=== PATIENT | female | born 1985 | race Caucasian/White ===

== ENCOUNTER 2016-10-29 03:00 | Inpatient (IN) | payer OTHER ==
[~2016-10-29] VITALS: Ht 172.7 cm; Wt 106.6 kg
[2016-10-29] VITALS (10 sets, daily range): BP systolic 104–118; BP diastolic 64–74
[~2016-10-29 03:00] MED LIST: SEASONIQUE 0.11 EACH PO; VITAMIN B COMP1 EACH PO
--- NOTE | 2016-10-29 10:54 | Operative Report ---
Operative/Inv Procedure Report Surgery Date: 10/29/16 Name of Procedure: Exploratory laparotomy myomectomy Pre-Operative Diagnosis: fiboid pain Post-Operative Diagnosis: same Estimated Blood Loss: 50ml to 100ml Surgeon/Security Incident Response Specialist: JULIANNE HOGAN,JAIDEN Villaseñor Anesthesia: general endotracheal tube, block Operative/Procedure Note Note: Patient was taken the operating room placed supine position after adequate anesthesia patient placed in dorsolithotomy position the vagina prepped draped fashion and cystoscopy was performed stents were placed by Dr. Madeline Wright will dictate the part of the case at this point the patient was returned spine position the abdomen was prepped and draped so fashion through Pfannenstiel skin incision 2 fingerbreadths of symptoms pubis in midline Skin was cut was carried down to rectus fascia which was cut in curvilinear fashion I direction peritoneal cavity was entered high into the abdomen Valles [place] Claude was placed in usual fashion lap pads were placed into the abdomen at this point the patient tolerated this well on the fibroid was injected with Pitressin I hemostasis was apparent the shows a fibroid was opened onto revealed that the fibroid was on extra removal of the fibroid was removed with a Bovie on the remaining stump was oversewn using 0 I coagulated with the Bovie on hemostasis was apparent on there was a small 1 cm on fibroid that was Bovie coagulated on the posterior wall of the fundus hemostasis was apparent 9 amount of fluid was removed from the abdomen Seprafilm was placed on both incisions to avoid adhesions in the future the lap pads were removed retractor was removed peritoneum was reapproximated 0 fascia was reapproximated approximated with 2 separate sutures of #1 running lock. Skin was reapproximated bassem after Bovie coagulation subcutaneous tissue. Sterile dressing was applied. The counts were correct the patient was awakened from anesthesia extubated and transferred recovery room awake alert
--- NOTE | 2016-10-29 12:06 | Operative Report ---
Operative/Inv Procedure Report Surgery Date: 10/29/16 Name of Procedure: cystoscopy: bilateral stent insertion Pre-Operative Diagnosis: fibroids Post-Operative Diagnosis: same Estimated Blood Loss: scant Surgeon/Boat Assembler: MD GLORIA ARNOLD-UROLOGY Anesthesia: general endotracheal tube Drains: 18 FR SHUKLA: BILAT. STENTS Specimens: UCX Complications: NONE Operative/Procedure Note Note: The patient was taken to the operating room and placed on the OR table in supine position. Timeout was performed, with the patient awake, to confirm identify, planned procedures, anesthesia, antibiotics and other pertinent kvng-operative information. After adequate anesthesia, and IV antibiotics, the patient was placed in lithotomy Yellow-fin stirrups. She was then draped and prepped in the usual surgical fashion, including a vaginal prep. A 22 Romanian cystoscope sheath with a 30 angle lens was inserted into the bladder without significant difficulty. The bladder was thoroughly and systematically examined, and was noted to be free of tumor, free of stone, free of endometriosis. Both ureteral orifices were in their orthotopic positions with clear reflux bilaterally. Under direct visualization the left orifice was intubated with a 5 Romanian whistle-tip catheter, which was advanced easily into the left kidney pelvis. The right ureteral orifice was intubated with a second 5 Romanian ureteral whistle tip catheter, and advanced into the right renal pelvis without difficulty. For identification purposes the blue marked stent went into the left kidney and the right ureteral stent was marked red. Urine culture was obtained and sent to pathology. The cystoscope was then removed leaving both stents in proper place. An 18 Romanian Shukla catheter was inserted draining clear fluid and 10 mL of sterile water was then placed in the balloon. The ends ureteral stents, which protruded externally, were taped to the Shukla catheter in order to secure their position. The individual ureteral stents were then connected to their individual drainage devices. The patient tolerated the procedure well. All sponge needle and instrument count were correct at the end of this procedure. At this point, Dr. Link was able to proceed with her patient's planned surgery. Findings: NORMAL BLADDER Discharge Disposition: PROCEED WITH DR. LINK CC: DEANA GLORIA MD
--- NOTE | 2016-10-29 13:20 | NUR ---
ARRIVED TO FLOOR FROM PACU. A & O X 3. ON RA. VSS. C/O MILD ABD PAIN. DILAUDID SENIOR SUPPORT ANALYST INFUSING. NO URINE NOTED IN SHUKLA. CATHETER CHECKED. SLIT IN SHUKLA CATHETER AND URINE DRAINING ON BED SHEETS. LARGE WET STAIN TO BED. ATTEMPTED TO TAPE AROUND LEAKING PART OF CATHETER UNSUCCESSFULLY. RE-TAPED WITH TEGADERM TO TRY AND PREVENT LEAKING. WORKED FOR SHORT AMOUNT OF TIME AND THEN LEAKING AGAIN. CALL PLACED TO DR. WHITAKER TO SEE IF CATHETER CAN EITHER BE EXCHANGED OR REMOVED.
[2016-10-30] VITALS (11 sets, daily range): BP systolic 98–116; BP diastolic 60–64
[2016-10-30 07:47] LABS: ABSOLUTE BASOPHIL COUNT 0 /CUMM (0.0-0.2); ABSOLUTE EOSINOPHIL COUNT 0.2 /CUMM (0.0-0.7); ABSOLUTE GRANULOCYTE CT 4.3 /CUMM (1.4-6.5); ABSOLUTE LYMPH COUNT 3.2 /CUMM (1.2-3.4); ABSOLUTE MONOCYTE COUNT 0.6 /CUMM (0.10-0.60); BASOPHIL % 0.6 % (0.0-2.0); EOSINOPHIL % 2.1 % (0-5); GRANULOCYTE % 52.3 % (42.2-75.2); MEAN CORPUSCULAR HGB 30.1 PG (27.0-31.0); MEAN CORPUSCULAR HGB CONC 33.8 G/DL (33.0-37.0); MEAN CORPUSCULAR VOLUME 89.1 FL (81.0-99.0); MEAN PLATELET VOLUME 8.3 FL (7.4-10.4); PLATELET COUNT 258 /CUMM (130-400); RBC DISTRIBUTION WIDTH 14.2 % (11.5-14.5); WHITE BLOOD CELL COUNT 8.3 /CUMM (4.8-10.8)
[2016-10-30 07:52] LABS: HEMATOCRIT 32.9 % (37-47)
--- NOTE | 2016-10-30 09:44 | PN- Post Delivery/GYN ---
Subjective Subjective: THIRSTY Objective Last 24 Hrs of Vital Signs/I&O Vital Signs Date Time Temp Pulse Resp B/P Pulse O2 O2 Flow FiO2 Ox Delivery Rate 10/30 0830 97.9 82 20 100/62 10/30 0830 97.9 82 20 100/62 94 Room Air 10/30 0637 98.6 83 20 98/62 95 10/30 0600 97.9 78 20 102/60 10/30 0600 97.9 78 20 102/60 95 Room Air 10/30 0400 98.2 82 20 108/62 10/30 0200 98.4 77 20 110/60 10/30 0021 97.9 78 20 102/60 95 10/30 0000 97.9 78 20 102/60 10/29 2200 98.0 77 20 110/64 10/29 2051 98.0 77 20 110/64 93 Room Air 10/29 2000 98.0 80 20 118/70 10/29 1908 98.0 77 20 118/72 94 Room Air 10/29 1900 98.0 77 20 118/72 10/29 1703 97.7 94 20 114/74 95 Room Air 10/29 1700 97.7 94 20 114/74 10/29 1455 97.8 81 18 104/70 94 Room Air 10/29 1319 97.6 94 18 108/70 10/29 1318 97.9 94 18 108/70 95 Room Air Intake & Output 10/30 1600 10/30 0800 10/30 0000 Intake Total 1060 1060 Output Total 250 450 Balance 810 610 Intake, IV 1000 1000 Intake, Oral 60 60 Output, Urine 250 450 Physical Exam: PLEASANT WF IN NAD ABD SOFT NT INCISION CDI EXT -EDEMA -HOMANS Assessment/Plan Assessment/Plan ASSESS S/P MYOMECTOMY PLAN CONT PPC
[2016-10-30] MEDS ORDERED: PERCOCET 5-3251 EACH PO (13:01)
[2016-10-30] MEDS ORDERED: IBUPROFEN800 M1 PO (13:01)
--- NOTE | 2016-10-30 23:46 | NUR ---
PT C/O NAUSEA, DR WHITAKER CALLED AND ORDER OBTAINED T.O. FOR IV ZOFRAN Q6, PT BELIEVES NAUSE CAME FROM PERCOCET. DR WHITAKER SERVICE WAS CALLED AND T.O. FOR VICODIN OBTAINED WELL D/C OF PERCOCET
[2016-10-31 06:19] VITALS: BP 120/68
[2016-10-31] MEDS ORDERED: HYDROCODON-ACE1 EAC2 PO (11:01)
--- NOTE | 2016-11-12 11:13 | Surgical Discharge Summary ---
Visit Information Visit Dates Admission Date: 10/29/16 Discharge Date: 10/31/16 History of Present Illness Chief Complaint: Pelvic pain Medical History Blood Transfusion Hx: No History of MRSA: No History of VRE: No History of CDIFF: No Isolation History: Standard Surgical History Pertinent Surgical History: L BREAST CYST REMOVAL X2 CERVIX LASERED-PRECANCER OVARIAN CYSTS REMOVED Psychosocial History Where Do You Live? Home Who Do You Live With? Other (see notes) Services at Home: None What is Your Primary Language? Czech Review of Systems: -13 point review of systems as stated in the HPI Hospital Course Course Attending Physician: JAIDEN WHITAKER MD Primary Care Physician: BRYSON CANTRELL MD Hospital Course: Patient underwent a myomectomy exploratory laparotomy was admitted on the first postoperative day patient did very well tolerated clear liquid diet second postoperative day patient showered and wanted to go home she was tolerating oral pain medication she denied any vaginal bleeding fever pain with urination and she was discharged home with following physical exam she's a pleasant white female HEENT anicteric lungs clear heart S1 and S2 abdomen soft I incision clean dry and intact extremities negative edema negative Homans Allergies: Coded Allergies: pork derived (porcine) (Severe, HIVES 10/23/16) Disposition Summary Disposition Principal Diagnosis: Is post exploratory laparotomy Additional Diagnosis: As post myomectomy Discharge Disposition: home or self care Discharge Instructions General Discharge Information Code Status: Full Code Patient's Diet: Regular Patient's Activity: Week rest no heavy lifting greater than 15 pounds no driving for 2 weeks Follow-Up Instructions/Appts: I office 1 week to remove bassem Medications at Discharge Discharge Medications: Continue taking these medications: L-Norgest/E.estradion-E.estrad (Seasonique 0.15-0.03-0.01 Tab) 0.15 MG-30 MCG ( 84)/10 MCG (7) [id number] 1 Tablet ORAL DAILY Comments: NOT GIVEN IN HOSPITAL Vitamin B Complex (Vitamin B Complex) 1 EACH CAPSULE 1 Capsule ORAL DAILY Comments: NOT GIVEN IN HOSPITAL Start taking the following new medications: Ibuprofen (Ibuprofen) 800 MG TABLET 800 Milligram ORAL EVERY SIX HOURS NEEDED as needed for PAIN SCALE 4-6 ( MODERATE) Qty = 30 No Refills Comments: NOT GIVEN IN HOSPITAL Hydrocodone/Acetaminophen (Hydrocodon-Acetaminophen 5-325) 5 MG-325 MG TABLET 1 Tablet ORAL EVERY 4 HOURS NEEDED as needed for PAIN SCALE 7-10 (SEVERE) Qty = 30 No Refills Comments: NOT GIVEN IN HOSPITAL
== END 2016-10-31 12:03 | DRG 743 ==
LOC: ENRESERVDT → ENRESERVTM → STS 03:00 → EDSTATUS 07:00 → STS 07:00 → PACUH 09:50 → 2NA 09:50 → ENPENDDIS 09:50 → 2NA 13:00
PROVIDERS: ADMIT Specialist
PROC: 0UB90ZZ Excision of Uterus, Open Approach (ICD-10-PCS; principal; 2016-10-29)
PROC: 0T788DZ Dilation of Bilateral Ureters with Intraluminal Device, Via Natural or Artificial Opening Endoscopic (ICD-10-PCS; 2016-10-29)
DX: D25.9 Leiomyoma of uterus, unspecified (principal)
CPT/HCPCS: 2NAP; 87086; 88305; J0131; J0694; J1170; J1200; J1885; J2405